=== PATIENT | female | born 2000 | race Caucasian/White ===

== ENCOUNTER 2020-10-12 19:04 | Observation (INO) ==
--- NOTE | 2020-10-12 19:14 | Emergency Department Note ---
Impression & Plan Acute appendicitis, Abdominal pain ED Provider Note NAME: CHARLY RENDON AGE: 19 SEX: F : 2000 ARRIVES VIA: Walk-In INFORMANT: Patient, ED PROVIDER(S): Mitchel Brizuela MD Chief Complaint: Abdominal pain HPI: Patient does present with concern for abdominal pain that initially began yesterday evaluation and was located in the mid abdomen. The patient states that today it is gotten somewhat progressively worse where she state has had gagging episodes and subsequently 2 episodes of vomiting prior to arrival that were nonbloody nonbilious. The patient had tried taking Pepto-Bismol but without relief in her symptoms. The patient denies any recent surgeries or procedures. The patient denies upper respiratory type symptoms including cough, fevers, chills, loss of taste or smell. The patient has no known Covid contacts and no recent travel. The patient denies any vaginal bleeding or discharge. P atient states the pain is worse with palpation and movement. Patient states it got even more uncomfortable this evening she was shifting around in her bed and now describes in the right lower quadrant. ROS: See HPI for pertinent positives and negatives. A total of 10 systems were reviewed and otherwise negative. Past medical history: See below Surgical history: See below Social history: See below Physical Exam: GENERAL: Uncomfortable in appearance, wearing a mask. EYE EXAM: Normal conjunctiva. PERRL, no anisocoria and EOM's grossly intact w/o pain. NECK: Supple, no nuchal rigidity, no adenopathy, non-tender. No signs of meningismus. LUNGS: Clear to auscultation. Normal chest wall mechanics. HEART: NSR, no MRG. ABDOMEN: Abdomen soft, lower abdominal pain worse in the right lower quadrant, positive obturators and psoas signs, normo-active bowel sounds, no masses, no rebound or guarding. BACK: No CVA TTP. SKIN: No rashes and no bruising. UPPER EXTREMITIES: Upper extremities are grossly normal. LOWER EXTREMITIES: Grossly normal, no edema. NEURO EXAM: A&O x3, cranial nerves II-XII grossly intact, normal speech, moves all 4 extremities on command w/o issue. Differential diagnoses: Appendicitis, ovarian cyst, ovarian torsion, ectopic , TOA, PID, infections, diverticulitis, UTI, obstruction, mesenteric ischemia, aortic pathology, inflammatory bowel disease, renal colic, PUD, pancreatitis, biliary pathology, hernia, volvulus, constipation, as well as other pathologies. Course: Patient was seen and evaluated the bedside. Full history physical exam was performed. EKG: Indication: Abdominal pain Normal sinus rhythm, rate of 84, normal intervals, normal axis, no obvious ST changes or T WI. Imaging Studies: CT abdomen pelvis showed acute appendicitis without perforation or abscess. Cardiac monitoring: An order was placed for continuous cardiac monitoring. The monitor shows a rate of 84 with sinus rhythm. MDM: Patient did present with concern for abdominal pain. Blood work is obtained along with an EKG and CT of the abdomen pelvis. The patient was treated symptomatically with IV fluids antiemetics and pain medication. Patient initially was hypotensive and tachycardic. The patient's blood pressure and heart rate did improve sitting upright in bed with IV fluids. Believe this is more secondary to dehydration. Patient white count 11.5. The patient does have a left shift. Mild hyponatremia. Patient's urinalysis does show the possibility of infection but there are numerous epithelial cells. Numerous ketones likely consistent with t he patient's dehydration. Patient CT did show concern for acute appendicitis but without perforation or abscess. I did inform the patient and with her permission I spoke with both of her parents. The patient was feeling improved. Patient declined any additional pain or nausea medication. I did speak with the on-call general surgeon Dr. Jean-Baptiste. Cefoxitin was ordered and the patient did have a Covid test completed. Patient was admitted to general surgery by Dr. Jean-Baptiste. Past Med/Surg History Medical History No pertinent past medical history Surgical History No pertinent past surgical history Social History Smoking Status: Never smoker Hx Alcohol Use: No Hx Substance Use: No marital status: Single current occupational status: student Feels Safe at Home: Yes Allergies Allergies Allergy/AdvReac Type Severity Reaction Status Date / Time No Known Allergies Allergy Verified 10/12/20 20:13 Home Meds Home Medications Medication Instructions Recorded Confirmed bismuth subsalicylate 2 tab PO QID PRN 10/12/20 10/12/20 [Pepto-Bismol] Results & Data (ED) Vital Signs Vital Signs - 24 hr 10/12/20 19:06 10/12/20 19:41 Temperature 36.9 C Temperature Source Temporal Artery Scan Pulse Rate 112 H Respiratory Rate 18 Respiratory Effort / Characteristics Non-Labored Respiratory Depth Normal Blood Pressure 93/45 L Blood Pressure Mean 61 Pulse Oximetry 97 99 Oxygen Delivery Method Room Air Room Air Sepsis Recent Fever Within 48 Hours No Sepsis New/Unexplained Change in Mental Status No Sepsis Action Taken by Nursing No Action Required Home Medications Current Medication List: was personally reviewed by me Laboratory Data Attestation: I reviewed the patient's lab results. Result diagrams: 10/12/20 19:42 10/12/20 19:42 Lab Results 10/12/20 10/12/20 10/12/20 Range/Units 19:42 19:42 19:42 WBC 11.59 H (4.8-10.8) K/uL RBC 4.60 (4.2-5.4) M/uL Hgb 14.1 (12.0-16.0) g/dL POC Hgb (12.0-16.0) g/dl Hct 42.0 (37-47) % POC Hct (37-47) % MCV 91.3 (80-100) fL MCH 30.7 (25-34) pg MCHC 33.6 (32-36) g/dL RDW Std Deviation 42.5 (36.4-46.3) fL RDW Coeff of Anthony 12.7 (11.5-14.5) % Plt Count 214 (130-400) K/uL MPV 10.9 H (7.4-10.4) fL Immature Gran % (Auto) 0.2 % Neut % (Auto) 86.2 % Lymph % (Auto) 7.3 % [place] % (Auto) 6.2 % Eos % (Auto) 0.0 % Baso % (Auto) 0.1 % Neut # (Auto) 9.99 H (1.4-6.5) K/uL Lymph # (Auto) 0.85 L (1.2-3.4) K/uL [place] # (Auto) 0.72 H (0.11-0.59) K/uL Eos # (Auto) 0.00 (0-0.5) K/uL Baso # (Auto) 0.01 (0-0.2) K/uL Immature Gran # (Auto) 0.02 (0.00-0.02) K/uL PT 11.0 (9.0-12.0) Seconds INR 1.1 (0.9-1.1) POC Sodium (135-144) mmol/L Sodium 132 L (136-145) mmol/L POC Potassium (3.3-5.0) mmol/L Potassium 3.6 (3.5-5.1) mmol/L POC Chloride (101-112) mmol/L Chloride 101 (98-107) mmol/L Carbon Dioxide 23 (21-32) mmol/L POC Total CO2 (24-31) mmol/L Anion Gap 8.0 (3-11) POC Anion Gap (16-25) mmol/L POC BUN (7-18) mg/dl BUN 12 (7-18) mg/dl Creatinine 1.07 (0.6-1.2) mg/dl POC Creatinine mg/dl Est Cr Clr Drug Dosing 79.7 ml/min Est GFR ( Amer) 87.2 Est GFR (Non-Af Amer) 75.2 BUN/Creatinine Ratio 11.1 (10-20) Glucose 121 H (70-99) mg/dl POC Glucose (other) (70-99) mg/dl Calcium 9.5 (8.5-10.1) mg/dl POC Ioniz [place] mmol/l Total Bilirubin 0.9 (0.2-1) mg/dl AST 8 L (15-37) U/L ALT 17 (12-78) U/L Alkaline Phosphatase 84 (45-117) U/L Total Protein 8.8 H (6.4-8.2) gm/dl Albumin 4.3 (3.4-5.0) gm/dl Globulin 4.5 H (2.5-4.0) gm/dl Albumin/Globulin Ratio 1.0 (0.9-2) TSH 1.660 (0.300-4.500) uIu/ml Urine Color Urine Appearance (Clear) Urine pH (4.5-7.5) Ur Specific [place] (1.000-1.030) Urine Protein (Negative) Urine Glucose (UA) (Negative) Urine Ketones (Negative) Urine Blood (Negative) Urine Nitrite (Negative) Urine Bilirubin (Negative) Urine Urobilinogen (Negative) Ur Leukocyte Esterase (Negative) Urine WBC (Auto) (0-5) /hpf Urine RBC (Auto) (0-4) /hpf U Hyaline Cast (Auto) (0-5) /lpf U Epithel Cells (Auto) (0-5) /lpf Urine Bacteria (Auto) (Negative) 10/12/20 10/12/20 Range/Units 19:42 19:48 WBC (4.8-10.8) K/uL RBC (4.2-5.4) M/uL Hgb (12.0-16.0) g/dL POC Hgb 16.0 (12.0-16.0) g/dl Hct (37-47) % POC Hct 47 (37-47) % MCV (80-100) fL MCH (25-34) pg MCHC (32-36) g/dL RDW Std Deviation (36.4-46.3) fL RDW Coeff of Anthony (11.5-14.5) % Plt Count (130-400) K/uL MPV (7.4-10.4) fL Immature Gran % (Auto) % Neut % (Auto) % Lymph % (Auto) % [place] % (Auto) % Eos % (Auto) % Baso % (Auto) % Neut # (Auto) (1.4-6.5) K/uL Lymph # (Auto) (1.2-3.4) K/uL [place] # (Auto) (0.11-0.59) K/uL Eos # (Auto) (0-0.5) K/uL Baso # (Auto) (0-0.2) K/uL Immature Gran # (Auto) (0.00-0.02) K/uL PT (9.0-12.0) Seconds INR (0.9-1.1) POC Sodium 134 L (135-144) mmol/L Sodium (136-145) mmol/L POC Potassium 3.7 (3.3-5.0) mmol/L Potassium (3.5-5.1) mmol/L POC Chloride 100 L (101-112) mmol/L Chloride (98-107) mmol/L Carbon Dioxide (21-32) mmol/L POC Total CO2 25 (24-31) mmol/L Anion Gap (3-11) POC Anion Gap 14.0 L (16-25) mmol/L POC BUN 12 (7-18) mg/dl BUN (7-18) mg/dl Creatinine (0.6-1.2) mg/dl POC Creatinine 0.9 mg/dl Est Cr Clr Drug Dosing ml/min Est GFR ( Amer) Est GFR (Non-Af Amer) BUN/Creatinine Ratio (10-20) Glucose (70-99) mg/dl POC Glucose (other) 125 H (70-99) mg/dl Calcium (8.5-10.1) mg/dl POC Ioniz [place] 1.10 mmol/l Total Bilirubin (0.2-1) mg/dl AST (15-37) U/L ALT (12-78) U/L Alkaline Phosphatase (45-117) U/L Total Protein (6.4-8.2) gm/dl Albumin (3.4-5.0) gm/dl Globulin (2.5-4.0) gm/dl Albumin/Globulin Ratio (0.9-2) TSH (0.300-4.500) uIu/ml Urine Color Dark Yellow Urine Appearance Clear (Clear) Urine pH 5.0 (4.5-7.5) Ur Specific [place] 1.029 (1.000-1.030) Urine Protein Trace H (Negative) Urine Glucose (UA) Negative (Negative) Urine Ketones 4+ H (Negative) Urine Blood Trace H (Negative) Urine Nitrite Negative (Negative) Urine Bilirubin 1+ H (Negative) Urine Urobilinogen Negative (Negative) Ur Leukocyte Esterase Negative (Negative) Urine WBC (Auto) 5-10 H (0-5) /hpf Urine RBC (Auto) 0-4 (0-4) /hpf U Hyaline Cast (Auto) 5-10 H (0-5) /lpf U Epithel Cells (Auto) >30 H (0-5) /lpf Urine Bacteria (Auto) 1+ H (Negative) Administered Medications Sodium Chloride (Nss 1000ml) 2,000 mls @ 999 mls/hr IV .Q2H1M COREY Stop: 10/12/20 21:30 Last Admin: 10/12/20 19:58 Dose: 999 mls/hr Documented by: [id number] Discontinued Medications Ioversol (Ioversol 100ml) 94 ml IV ONCE ONE Stop: 10/12/20 20:09 Last Admin: 10/12/20 20:09 Dose: 94 ml Documented by: [id number] Morphine Sulfate (Morphine Sulfate 4 Mg/Ml 1 Ml Carp\Vial) 4 mg IV NOW STA Stop: 10/12/20 19:22 Last Admin: 10/12/20 19:58 Dose: 4 mg Documented by: [id number] Ondansetron HCl (Ondansetron Inj 2 Mg/Ml 2 Ml Vial) 4 mg IV NOW STA Stop: 10/12/20 19:22 Last Admin: 10/12/20 19:58 Dose: 4 mg Documented by: [id number] Discharge Plan Visit Data Chief Complaint: Abdominal Pain Stated Complaint: ABD PAIN, VOMITING ED Provider: Mitchel Brizuela Discharge Problem: Acute appendicitis, Abdominal pain Forms Stand Alone Forms: [employer] [facility] [place] [employer] Content Prescriptions Prescriptions: No Action bismuth subsalicylate [Pepto-Bismol] 262 mg Tablet,Chewable 2 tab PO QID PRN (Reason: Indigestion) RF: 0 Discharge Problem: Acute appendicitis Qualifiers: Acute appendicitis type: with localized peritonitis Appendicitis gangrene presence: without gangrene Appendicitis perforation presence: without perforation Appendicitis abscess presence: without abscess Qualified Code(s): K35.30 - Acute appendicitis with localized peritonitis, without perforation or gangrene Abdominal pain Qualifiers: Abdominal location: right lower quadrant Qualified Code(s): R10.31 - Right lower quadrant pain
[2020-10-12] MEDS ORDERED: MoRPHine SULFATE 4 MG/ML 1 ML CARP\\VIAL IV STA (19:21)
[2020-10-12] MEDS ORDERED: ONDANSETRON INJ 2 MG/ML 2 ML VIAL IV STA (19:21)
[2020-10-12] MEDS ORDERED: SODIUM CHLORIDE 0.9% 1000ML 2,000 ML IV SCH (19:30)
[2020-10-12 19:54] LABS: Basophils # (auto) 0.01 K/uL (0-0.2); Basophils % (auto) 0.1 %; Hemoglobin 14.1 g/dL (12.0-16.0); Immature Granulocytes # (auto) 0.02 K/uL (0.00-0.02); Immature Granulocytes % (auto) 0.2 %; Lymphocytes # (auto) 0.85 K/uL (1.2-3.4); Lymphocytes % (auto) 7.3 %; Mean Corpuscular Hemoglobin 30.7 pg (25-34); Mean Corpuscular Hgb Conc 33.6 g/dL (32-36); Mean Corpuscular Volume 91.3 fL (80-100); Mean Platelet Volume 10.9 fL (7.4-10.4); Monocytes # (auto) 0.72 K/uL (0.11-0.59); Monocytes % (auto) 6.2 %; Neutrophils # (auto) 9.99 K/uL (1.4-6.5); Neutrophils % (auto) 86.2 %; Platelet Count 214 K/uL (130-400); RDW Coefficient of Variation 12.7 % (11.5-14.5); RDW Standard Deviation 42.5 fL (36.4-46.3); White Blood Count 11.59 K/uL (4.8-10.8)
[2020-10-12 20:01] LABS: iSTAT Creatinine 0.9 mg/dl; iSTAT Ionized Calcium 1.1 mmol/l; iSTAT Potassium 3.7 mmol/L (3.3-5.0)
[2020-10-12 20:02] LABS: Appearance Urine Clear (Clear); Bacteria Urine Automated 1+ (Negative); Blood Urine Trace (Negative); Color Urine Dark Yellow; Epithelial Cell Urine Auto >30 /lpf (0-5); Glucose Urine UA Negative (Negative); INR 1.1 (0.9-1.1); Ketones Urine 4+ (Negative); Leukocyte Esterase Urine Negative (Negative); Nitrite Urine Negative (Negative); Protein Urine Trace (Negative); RBC Urine Automated 0-4 /hpf (0-4); Specific Gravity Urine 1.029 (1.000-1.030); Urobilinogen Urine Negative (Negative)
[2020-10-12 20:08] LABS: Bilirubin Urine 1+ (Negative)
[2020-10-12] MEDS ORDERED: OPTIRAY 320 100ml IV ONE (20:08)
[2020-10-12 20:10] LABS: Albumin Level 4.3 gm/dl (3.4-5.0); BUN Creatinine Ratio 11.1 (10-20); Calcium 9.5 mg/dl (8.5-10.1); Creatinine Clr Calc Pharmacy 79.7 ml/min; Est GFR (African American) 87.2; Est GFR (Non-African American) 75.2; Potassium 3.6 mmol/L (3.5-5.1)
[2020-10-12 20:21] LABS: Bilirubin,Total 0.9 mg/dl (0.2-1); Globulin 4.5 gm/dl (2.5-4.0); Thyroid Stimulating Hormone 1.66 uIu/ml (0.300-4.500); Total Protein 8.8 gm/dl (6.4-8.2)
[2020-10-12] MEDS ORDERED: cefOXitin 2,000 MG/60 ML BAG IV STA (20:39)
[2020-10-12 22:02] LABS: Pregnancy Test, Urine Negative (Negative)
[2020-10-12 22:03] LABS: Influenza A virus by PCR Negative (Neg); Influenza B virus by PCR Negative (Neg); RSV by PCR Negative (Neg); SARS CoV2 RNA(COVID-19) InHosp NEGATIVE (Negative)
--- NOTE | 2020-10-12 22:12 | History & Physical Report ---
Date of Service October 12, 2020 Assessment & Plan (1) Acute appendicitis: This patient's history, physical exam, laboratory evaluation and CT scan are all consistent with acute appendicitis. I reviewed the images as well as the report. I discussed the options with the patient and with her mom and dad who were contacted by telephone. I discussed antibiotics versus surgery. I explained the laparoscopic cholecystectomy and the possible need to convert to an open procedure. I explained the possible complications. I answered all their questions. They have chosen surgery. She has signed a consent form. History of Present Illness Chief Complaint: Right lower quadrant abdominal pain Primary Care Provider: NO PCP This is a 19-year-old female who presented to the emergency room with a complaint of right lower quadrant abdominal pain. She awoke with it yesterday morning. At that time it was a dull ache-like sensation diffusely throughout her abdomen. As the day progressed the pain seemed to increase in intensity but she was able to go to sleep last night. When she awoke this morning the pain was much more severe and sharp. It had migrated to the right lower quadrant where it is located now. It does not radiate. It is exacerbated by motion. She has never had pain like this before. She has no fever or chills but she did develop vomiting this morning and vomited again on the way to the hospital. There was no hematemesis. She has no history of peptic ulcer disease. She has no melena or hematochezia. She denies dysuria and hematuria. Allergies Allergy/AdvReac Type Severity Reaction Status Date / Time No Known Allergies Allergy Verified 10/12/20 20:13 Home Medications Medication Instructions Recorded Confirmed Type bismuth subsalicylate 2 tab PO QID PRN 10/12/20 10/12/20 History [Pepto-Bismol] Past Med/Surg History Medical History (Updated 10/12/20 @ 20:46 by Mitchel Brizuela MD) No pertinent past medical history Surgical History (Updated 10/12/20 @ 22:08 by Orlando Jean-Baptiste MD) No pertinent past surgical history [place] teeth extracted Social History Smoking Status: Never smoker Hx Alcohol Use: No Hx Substance Use: No marital status: Single current occupational status: student Feels Safe at Home: Yes Review of Systems Review of Systems: All systems reviewed & are unremarkable except as noted in HPI & below Physical Exam Constitutional: no acute distress Neck: trachea midline Respiratory: normal respiratory effort, lungs clear to auscultation Cardiovascular: Rate/Rhythm: regular rate and regular rhythm Gastrointestinal (Abdomen): Inspection/Auscultation: abdomen normal to inspection and normal bowel sounds; abdomen not distended Percussion/Palpation: + abdomen tender (Right lower quadrant with referred tenderness from the left lower quadrant) and abdomen soft Skin: no rashes, warm and dry Lymphatic: + lymphadenopathy; no cervical lymphadenopathy Results & Data Results & Data ([facility]) Vital Signs (Past 12 Hours) Vital Signs Temp Pulse Resp BP Pulse Ox 10/12/20 21:31 98 H 25 H 99 10/12/20 21:30 102 H 29 H 111/70 99 10/12/20 21:01 109 H 29 H 99 10/12/20 21:00 95 H 22 110/68 100 10/12/20 20:45 102 H 27 H 99 10/12/20 20:44 106 H 25 H 117/74 99 10/12/20 20:31 105 H 25 H 97 10/12/20 20:30 104 H 30 H 121/75 98 10/12/20 20:01 88 20 99 10/12/20 20:00 92 H 17 111/63 100 10/12/20 19:56 99 H 30 H 116/72 100 10/12/20 19:43 102 H 32 H 10/12/20 19:41 99 10/12/20 19:06 36.9 C 112 H 18 93/45 L 97 Laboratory Results 10/12/20 10/12/20 10/12/20 Range/Units Unknown Unknown 19:48 WBC (4.8-10.8) K/uL RBC (4.2-5.4) M/uL Hgb (12.0-16.0) g/dL POC Hgb 16.0 (12.0-16.0) g/dl Hct (37-47) % POC Hct 47 (37-47) % MCV (80-100) fL MCH (25-34) pg MCHC (32-36) g/dL RDW Std Deviation (36.4-46.3) fL RDW Coeff of [place] (11.5-14.5) % Plt Count (130-400) K/uL MPV (7.4-10.4) fL Immature Gran % (Auto) % Neut % (Auto) % Lymph % (Auto) % [place] % (Auto) % Eos % (Auto) % Baso % (Auto) % Neut # (Auto) (1.4-6.5) K/uL Lymph # (Auto) (1.2-3.4) K/uL [place] # (Auto) (0.11-0.59) K/uL Eos # (Auto) (0-0.5) K/uL Baso # (Auto) (0-0.2) K/uL Immature Gran # (Auto) (0.00-0.02) K/uL PT (9.0-12.0) Seconds INR (0.9-1.1) POC Sodium 134 L (135-144) mmol/L Sodium (136-145) mmol/L POC Potassium 3.7 (3.3-5.0) mmol/L Potassium (3.5-5.1) mmol/L POC Chloride 100 L (101-112) mmol/L Chloride (98-107) mmol/L Carbon Dioxide (21-32) mmol/L POC Total CO2 25 (24-31) mmol/L Anion Gap (3-11) POC Anion Gap 14.0 L (16-25) mmol/L POC BUN 12 (7-18) mg/dl BUN (7-18) mg/dl Creatinine (0.6-1.2) mg/dl POC Creatinine 0.9 mg/dl Est Cr Clr Drug Dosing ml/min Est GFR ( Amer) Est GFR (Non-Af Amer) BUN/Creatinine Ratio (10-20) Glucose (70-99) mg/dl POC Glucose (other) 125 H (70-99) mg/dl Calcium (8.5-10.1) mg/dl POC Ioniz [place] 1.10 mmol/l Total Bilirubin (0.2-1) mg/dl AST (15-37) U/L ALT (12-78) U/L Alkaline Phosphatase (45-117) U/L Total Protein (6.4-8.2) gm/dl Albumin (3.4-5.0) gm/dl Globulin (2.5-4.0) gm/dl Albumin/Globulin Ratio (0.9-2) TSH (0.300-4.500) uIu/ml Urine Color Urine Appearance (Clear) Urine pH (4.5-7.5) Ur Specific [place] (1.000-1.030) Urine Protein (Negative) Urine Glucose (UA) (Negative) Urine Ketones (Negative) Urine Blood (Negative) Urine Nitrite (Negative) Urine Bilirubin (Negative) Urine Urobilinogen (Negative) Ur Leukocyte Esterase (Negative) Urine WBC (Auto) (0-5) /hpf Urine RBC (Auto) (0-4) /hpf U Hyaline Cast (Auto) (0-5) /lpf U Epithel Cells (Auto) (0-5) /lpf Urine Bacteria (Auto) (Negative) Urine Test (Negative) COVID-19 Eval Order CovFluRsv at [facility] SARS-CoV-2 (PCR) NEGATIVE (Negative) Influenza Type A (PCR) Negative (Neg) Influenza Type B (PCR) Negative (Neg) RSV (RT-PCR) Negative (Neg) 10/12/20 10/12/20 10/12/20 Range/Units 19:42 19:42 19:42 WBC (4.8-10.8) K/uL RBC (4.2-5.4) M/uL Hgb (12.0-16.0) g/dL POC Hgb (12.0-16.0) g/dl Hct (37-47) % POC Hct (37-47) % MCV (80-100) fL MCH (25-34) pg MCHC (32-36) g/dL RDW Std Deviation (36.4-46.3) fL RDW Coeff of [place] (11.5-14.5) % Plt Count (130-400) K/uL MPV (7.4-10.4) fL Immature Gran % (Auto) % Neut % (Auto) % Lymph % (Auto) % [place] % (Auto) % Eos % (Auto) % Baso % (Auto) % Neut # (Auto) (1.4-6.5) K/uL Lymph # (Auto) (1.2-3.4) K/uL [place] # (Auto) (0.11-0.59) K/uL Eos # (Auto) (0-0.5) K/uL Baso # (Auto) (0-0.2) K/uL Immature Gran # (Auto) (0.00-0.02) K/uL PT 11.0 (9.0-12.0) Seconds INR 1.1 (0.9-1.1) POC Sodium (135-144) mmol/L Sodium 132 L (136-145) mmol/L POC Potassium (3.3-5.0) mmol/L Potassium 3.6 (3.5-5.1) mmol/L POC Chloride (101-112) mmol/L Chloride 101 (98-107) mmol/L Carbon Dioxide 23 (21-32) mmol/L POC Total CO2 (24-31) mmol/L Anion Gap 8.0 (3-11) POC Anion Gap (16-25) mmol/L POC BUN (7-18) mg/dl BUN 12 (7-18) mg/dl Creatinine 1.07 (0.6-1.2) mg/dl POC Creatinine mg/dl Est Cr Clr Drug Dosing 79.7 ml/min Est GFR ( Amer) 87.2 Est GFR (Non-Af Amer) 75.2 BUN/Creatinine Ratio 11.1 (10-20) Glucose 121 H (70-99) mg/dl POC Glucose (other) (70-99) mg/dl Calcium 9.5 (8.5-10.1) mg/dl POC Ioniz [place] mmol/l Total Bilirubin 0.9 (0.2-1) mg/dl AST 8 L (15-37) U/L ALT 17 (12-78) U/L Alkaline Phosphatase 84 (45-117) U/L Total Protein 8.8 H (6.4-8.2) gm/dl Albumin 4.3 (3.4-5.0) gm/dl Globulin 4.5 H (2.5-4.0) gm/dl Albumin/Globulin Ratio 1.0 (0.9-2) TSH 1.660 (0.300-4.500) uIu/ml Urine Color Dark Yellow Urine Appearance Clear (Clear) Urine pH 5.0 (4.5-7.5) Ur Specific [place] 1.029 (1.000-1.030) Urine Protein Trace H (Negative) Urine Glucose (UA) Negative (Negative) Urine Ketones 4+ H (Negative) Urine Blood Trace H (Negative) Urine Nitrite Negative (Negative) Urine Bilirubin 1+ H (Negative) Urine Urobilinogen Negative (Negative) Ur Leukocyte Esterase Negative (Negative) Urine WBC (Auto) 5-10 H (0-5) /hpf Urine RBC (Auto) 0-4 (0-4) /hpf U Hyaline Cast (Auto) 5-10 H (0-5) /lpf U Epithel Cells (Auto) >30 H (0-5) /lpf Urine Bacteria (Auto) 1+ H (Negative) Urine Test (Negative) COVID-19 Eval Order SARS-CoV-2 (PCR) (Negative) Influenza Type A (PCR) (Neg) Influenza Type B (PCR) (Neg) RSV (RT-PCR) (Neg) 10/12/20 10/12/20 Range/Units 19:42 19:33 WBC 11.59 H (4.8-10.8) K/uL RBC 4.60 (4.2-5.4) M/uL Hgb 14.1 (12.0-16.0) g/dL POC Hgb (12.0-16.0) g/dl Hct 42.0 (37-47) % POC Hct (37-47) % MCV 91.3 (80-100) fL MCH 30.7 (25-34) pg MCHC 33.6 (32-36) g/dL RDW Std Deviation 42.5 (36.4-46.3) fL RDW Coeff of Anthony 12.7 (11.5-14.5) % Plt Count 214 (130-400) K/uL MPV 10.9 H (7.4-10.4) fL Immature Gran % (Auto) 0.2 % Neut % (Auto) 86.2 % Lymph % (Auto) 7.3 % [place] % (Auto) 6.2 % Eos % (Auto) 0.0 % Baso % (Auto) 0.1 % Neut # (Auto) 9.99 H (1.4-6.5) K/uL Lymph # (Auto) 0.85 L (1.2-3.4) K/uL [place] # (Auto) 0.72 H (0.11-0.59) K/uL Eos # (Auto) 0.00 (0-0.5) K/uL Baso # (Auto) 0.01 (0-0.2) K/uL Immature Gran # (Auto) 0.02 (0.00-0.02) K/uL PT (9.0-12.0) Seconds INR (0.9-1.1) POC Sodium (135-144) mmol/L Sodium (136-145) mmol/L POC Potassium (3.3-5.0) mmol/L Potassium (3.5-5.1) mmol/L POC Chloride (101-112) mmol/L Chloride (98-107) mmol/L Carbon Dioxide (21-32) mmol/L POC Total CO2 (24-31) mmol/L Anion Gap (3-11) POC Anion Gap (16-25) mmol/L POC BUN (7-18) mg/dl BUN (7-18) mg/dl Creatinine (0.6-1.2) mg/dl POC Creatinine mg/dl Est Cr Clr Drug Dosing ml/min Est GFR ( Amer) Est GFR (Non-Af Amer) BUN/Creatinine Ratio (10-20) Glucose (70-99) mg/dl POC Glucose (other) (70-99) mg/dl Calcium (8.5-10.1) mg/dl POC Ioniz [place] mmol/l Total Bilirubin (0.2-1) mg/dl AST (15-37) U/L ALT (12-78) U/L Alkaline Phosphatase (45-117) U/L Total Protein (6.4-8.2) gm/dl Albumin (3.4-5.0) gm/dl Globulin (2.5-4.0) gm/dl Albumin/Globulin Ratio (0.9-2) TSH (0.300-4.500) uIu/ml Urine Color Urine Appearance (Clear) Urine pH (4.5-7.5) Ur Specific [place] (1.000-1.030) Urine Protein (Negative) Urine Glucose (UA) (Negative) Urine Ketones (Negative) Urine Blood (Negative) Urine Nitrite (Negative) Urine Bilirubin (Negative) Urine Urobilinogen (Negative) Ur Leukocyte Esterase (Negative) Urine WBC (Auto) (0-5) /hpf Urine RBC (Auto) (0-4) /hpf U Hyaline Cast (Auto) (0-5) /lpf U Epithel Cells (Auto) (0-5) /lpf Urine Bacteria (Auto) (Negative) Urine Test Negative (Negative) COVID-19 Eval Order SARS-CoV-2 (PCR) (Negative) Influenza Type A (PCR) (Neg) Influenza Type B (PCR) (Neg) RSV (RT-PCR) (Neg) Diagnostic Findings CT scan of the abdomen and pelvis shows acute appendicitis with the appendix distended up to 1.2 cm with mucosal hyperemia and trace adjacent fat stranding. There is no perforation or abscess. There is mucosal thickening within the pelvic small bowel loops favored reactive. Small free fluid within the pelvis. (1) Acute appendicitis Acute appendicitis type: with localized peritonitis Appendicitis abscess presence: without abscess Appendicitis gangrene presence: without gangrene Appendicitis perforation presence: without perforation Qualified Code(s): K35.30 - Acute appendicitis with localized peritonitis, without perforation or gangrene
[2020-10-12] MEDS ORDERED: BUPIVACAINE 0.5 % 5 MG/1 ML MPF 30ML VIAL ONE (22:21)
[2020-10-12] MEDS ORDERED: HEPARIN (PORCINE) 1000 UNIT/ML 10 ML (CATH LAB USE ONLY) ONE (22:21)
[2020-10-12] MEDS ORDERED: MIDAZOLAM HCL 1 MG/ML 2ML VIAL ONE (22:30)
[2020-10-12] MEDS ORDERED: ROCURONIUM BROMIDE 10 MG/ML 5 ML VIAL IV ONE (22:30)
[2020-10-12] MEDS ORDERED: SUCCINYLCHOLINE 100MG/5ML SYR IV ONE (22:30)
[2020-10-12] MEDS ORDERED: fentaNYL citrate 100 MCG/2 ML VIAL ONE ×2 (22:30→23:12)
[2020-10-12] MEDS ORDERED: PROPOFOL IV EMULSION 10 MG/ML 20 ML VIAL IV ONE (22:30)
[2020-10-12] MEDS ORDERED: ePHEDrine sulfate 50 MG/ML AMP IV PRN (22:43)
[2020-10-12] MEDS ORDERED: ATROPINE SULFATE 0.1 MG/ML 10ML SYR IV PRN (22:43)
[2020-10-12] MEDS ORDERED: PROMETHAZINE HCL 12.5 MG in SODIUM CHLORIDE 0.9% 50 ML IV PRN (22:43)
[2020-10-12] MEDS ORDERED: ONDANSETRON INJ 2 MG/ML 2 ML VIAL IV PRN (22:43)
[2020-10-12] MEDS ORDERED: HYDROmorphone INJ 2 MG/ML SYR/VIAL IV PRN (22:43)
[2020-10-12] MEDS ORDERED: fentaNYL citrate 100 MCG/2 ML VIAL IV PRN (22:43)
--- NOTE | 2020-10-12 22:43 | Anesthesiology Consultation ---
Date of Service October 12, 2020 Assessment & Plan ASA ASA2 Proposed Anesthesia Anesthesia Type: General Risk / Benefits Reviewed With: PT / POA / Parent / Guardian, Accepts Plan and Informed Consent Obtained History Surgery Operation Date: 10/12/20 23:00 Proposed Procedures p Laparoscopic Appendectomy - Orlando Jean-Baptiste MD Height/Weight Height: 5 ft 9 in Weight: 59.7 kg Allergies Allergy/AdvReac Type Severity Reaction Status Date / Time No Known Allergies Allergy Verified 10/12/20 20:13 Medications Home Medications Medication Instructions Recorded Confirmed Last Taken bismuth subsalicylate 2 tab PO QID PRN 10/12/20 10/12/20 10/12/20 15:00 [Pepto-Bismol] Past Medical History Medical History No pertinent past medical history Exercise / Class Metabolic Activity II 4-5 Yardwork/Stairs/Walk up hill Past Surgical History Surgical History No pertinent past surgical history [place] teeth extracted Past Anesthesia History No Hx of Anesthesia Complications and No Family Hx of Anesthesia Complications History of PONV No Hx of PONV and No Hx of Motion Sickness Social History Smoking Status: Never smoker Hx Alcohol Use: No Hx Substance Use: No Review of Systems denies fever/cough/ colds/ chest pain/ SOB/ LIBAN denies LIBAN Physical Exam Vital Signs Last Vital Signs Temp 36.9 C 10/12/20 19:06 Pulse 111 H 10/12/20 22:01 Resp 24 10/12/20 22:01 BP 109/66 10/12/20 22:00 Pulse Ox 98 10/12/20 22:01 ENMT Mouth: no TMJ abnormality and no dentition abnormality Thyromental Distance: > or= 3.5 Finger Breadths Mallampati Class: II Neck neck extension not limited Respiratory normal respiratory effort; no respiratory distress Auscultation: lungs clear to auscultation bilaterally Cardiovascular Rate/Rhythm: regular rate and regular rhythm Neurologic moves all extremities Psychiatric Orientation: alert and oriented x 3 Testing Laboratory Results 10/12/20 19:42 10/12/20 19:42 PT 11.0 Seconds (9.0-12.0) 10/12/20 19:42 INR 1.1 (0.9-1.1) 10/12/20 19:42 Urine Color Dark Yellow 10/12/20 19:42 Urine Appearance Clear (Clear) 10/12/20 19:42 Urine pH 5.0 (4.5-7.5) 10/12/20 19:42 Ur Specific [place] 1.029 (1.000-1.030) 10/12/20 19:42 Urine Protein Trace (Negative) H 10/12/20 19:42 Urine Glucose (UA) Negative (Negative) 10/12/20 19:42 Urine Ketones 4+ (Negative) H 10/12/20 19:42 Urine Nitrite Negative (Negative) 10/12/20 19:42 Ur Leukocyte Esterase Negative (Negative) 10/12/20 19:42 Urine WBC (Auto) 5-10 /hpf (0-5) H 10/12/20 19:42 Urine RBC (Auto) 0-4 /hpf (0-4) 10/12/20 19:42 U Hyaline Cast (Auto) 5-10 /lpf (0-5) H 10/12/20 19:42 U Epithel Cells (Auto) >30 /lpf (0-5) H 10/12/20 19:42 Urine Bacteria (Auto) 1+ (Negative) H 10/12/20 19:42 Urine Test Negative (Negative) 10/12/20 19:33 10/12/20 19:48 POC Glucose (other) 125 H 10/12/20 19:33 Urine Test Negative
[2020-10-12] MEDS ORDERED: ONDANSETRON INJ 2 MG/ML 2 ML VIAL ONE (23:07)
[2020-10-12] MEDS ORDERED: DEXAMETHASONE SOD INJ 4 MG/ML VIAL ONE (23:07)
[2020-10-12] MEDS ORDERED: KETOROLAC 30 MG/ML VIAL ONE (23:07)
[2020-10-12] MEDS ORDERED: NEOSTIGMINE METHYLSULFATE 5 MG/5 ML SYR ONE (23:16)
[2020-10-12] MEDS ORDERED: GLYCOPYRROLATE 0.2 MG/ML VIAL ONE (23:16)
--- NOTE | 2020-10-13 00:40 | Post Operative Brief Note ---
Immediate Post Op Note v1 Date of Surgery October 13, 2020 Pre & Post Diagnosis Operation Date: 10/12/20 23:00 Pre-Op Diagnosis: Acute appendicitis Post-Op Diagnosis: Acute appendicitis I identified the patient and participated in the time-out.: Yes Procedure Operation Date: 10/12/20 23:00 Actual Procedures p Laparoscopic Appendectomy(Not Applicable) - Orlando Jean-Baptiste MD Surgeon Orlando Jean-Baptiste MD Hand Cutter Apprentice None Estimated Blood Loss 5 Findings Consistent with Post-Op Diagnosis Drains Davey-Richards Drain (10 fr. round)
[2020-10-13] MEDS ORDERED: PIPERACILL/TAZOBAC CONSULT ACTIVE PRN (00:52)
--- NOTE | 2020-10-13 00:59 | Anesthesiology Progress Note ---
Date of Service October 13, 2020 Anesthesia Post Procedure Vital Signs Vital Signs: Temp Pulse Pulse Resp BP BP Pulse Ox 10/13/20 00:50 78 14 114/71 98 10/13/20 00:42 37.7 C H 80 14 112/64 98 10/12/20 22:01 111 H 24 98 10/12/20 22:00 110 H 21 109/66 99 10/12/20 21:31 98 H 25 H 99 10/12/20 21:30 102 H 29 H 111/70 99 10/12/20 21:01 109 H 29 H 99 10/12/20 21:00 95 H 22 110/68 100 10/12/20 20:45 102 H 27 H 99 10/12/20 20:44 106 H 25 H 117/74 99 10/12/20 20:31 105 H 25 H 97 10/12/20 20:30 104 H 30 H 121/75 98 10/12/20 20:01 88 20 99 10/12/20 20:00 92 H 17 111/63 100 10/12/20 19:56 99 H 30 H 116/72 100 10/12/20 19:43 102 H 32 H 10/12/20 19:41 99 10/12/20 19:06 36.9 C 112 H 18 93/45 L 97 Transfer of Care Handoff Completed per policy Notes Mental Status: alert / awake / arousable and participated in evaluation Patient Amnestic to Procedure: Yes Nausea / Vomiting: adequately controlled Pain: adequately controlled Airway Patency, RR, SpO2: stable & adequate BP & HR: stable & adequate Hydration State: stable & adequate Anesthetic Complications: no major complications apparent and Pt Satisfied with anesthetic care
[2020-10-13] MEDS ORDERED: ONDANSETRON INJ 2 MG/ML 2 ML VIAL IV PRN (01:33)
[2020-10-13] MEDS ORDERED: SODIUM CHLORIDE 0.9% 1000ML 1,000 ML IV SCH ×2 (01:33)
[2020-10-13] MEDS ORDERED: MoRPHine SULFATE 2 MG/ML CARP IV PRN (01:36)
[2020-10-13] MEDS ORDERED: PIPERACILLIN/TAZOBACTAM 3.375 GM in DEXTROSE 5% 100 ML IV ONE (02:00)
--- NOTE | 2020-10-13 06:24 | CT Scan Report ---
CT abd pelvis IV con only CLINICAL HISTORY: Right lower quadrant abdominal pain COMPARISON STUDY: None. TECHNIQUE: Patient was scanned in a dynamic helical fashion during intravenous administration of 94 c c of Optiray 320 A dose lowering technique was utilized adhering to the principles of ALARA. CT DOSE: 296.51 mGy.cm FINDINGS: Lower chest: The heart is normal in size and configuration, without pericardial effusion. The lung ba ses and pleural spaces are clear. Liver: The contrast-enhanced liver is normal in size, contour, and attenuation. There is no intrahepa tic biliary ductal dilatation. The hepatic veins and portal veins are patent. Gallbladder: Unremarkable. Spleen: Normal in size and attenuation. Pancreas: Unremarkable. Adrenal glands: Unremarkable. Kidneys: There is symmetric renal cortical enhancement. The kidneys are normal in size without hydron ephrosis. Bowel: There are no transition zones to indicate bowel obstruction. There is a mildly dilated fluid-f illed appendix measuring 11 mm. There is mild infiltration of periappendiceal fat. In the setting of right lower quadrant abdominal pain, the findings are indicative of acute appendicitis. There is no e vidence of acute diverticulitis. There is minor bowel wall thickening involving several pelvic bowel loops possibly reactive Peritoneum: There is a small amount of free pelvic fluid. There is no free intraperitoneal air. Vasculature: The abdominal aorta is normal in course and caliber. Adenopathy: None. Pelvic viscera: The bladder, and pelvic viscera are unremarkable. Skeletal structures: No destructive osseous lesions are seen. IMPRESSION: 1. No evidence of bowel obstruction. No evidence of free air 2. Mildly dilated fluid-filled appendix. There is periappendiceal stranding. In the setting of right lower quadrant abdominal pain the findings are indicative of acute appendicitis. ACT 112: Negative or not required by law. Electronically signed by: Asaf Richter M.D. 10/13/2020 6:23 AM
[2020-10-13] MEDS: PIPERACILLIN/TAZOBACTAM 3.375 GM in DEXTROSE 5% 100 ML IV SCH ×3 (07:44→23:28)
--- NOTE | 2020-10-13 10:14 | Surgery Progress Note ---
Date of Service October 13, 2020 Assessment & Plan (1) Acute appendicitis: Postoperative day 0 status post laparoscopic appendectomy. She is having expected amount of discomfort that is controlled Continue IV antibiotics Awaiting cultures Encouraged ambulation Oral intake as tolerated Admission and Anticipated Discharge Date Admission Date: October 13, 2020 Subjective Postoperative day 0 status post laparoscopic appendectomy with probable small perforation Patient is having mild discomfort this morning Does not feel nausea Has not had bowel movement T-max 37.7 Physical Exam Gastrointestinal (Abdomen): Inspection/Auscultation: + abdomen distended (Mild), + abdominal surgical incision (Clean, dry and intact) and + hypoactive bowel sounds (But normal pitch) Percussion/Palpation: + abdomen tender (Minimal) and abdomen soft Results & Data ([facility]) Vital Signs (Past 12 Hours) Vital Signs Temp Pulse Pulse Resp BP Pulse Ox 10/13/20 06:59 36.5 C 62 16 94/55 L 98 10/13/20 04:51 60 14 91/51 L 97 10/13/20 03:29 76 12 89/44 L 98 10/13/20 02:33 72 14 91/49 L 97 10/13/20 01:52 36.9 C 85 14 101/61 95 10/13/20 01:20 36.9 C 79 14 106/62 95 10/13/20 01:10 37.4 C 91 H 14 110/61 98 10/13/20 01:00 89 14 111/60 98 10/13/20 00:50 78 14 114/71 98 10/13/20 00:42 37.7 C H 80 14 112/64 98 Laboratory Results Gram stain of peritoneal fluid showed many polys but no organisms seen, cultures are pending (1) Acute appendicitis Acute appendicitis type: with localized peritonitis Appendicitis abscess p resence: without abscess Appendicitis gangrene presence: without gangrene Appendicitis perforation presence: without perforation Qualified Code(s): K35.30 - Acute appendicitis with localized peritonitis, without perforation or gangrene
--- NOTE | 2020-10-13 13:33 | Electrocardiogram Report ---
Test Reason : Blood Pressure : / mmHG Vent. Rate : 084 BPM Atrial Rate : 084 BPM P-R Int : 128 ms QRS Dur : 064 ms QT Int : 350 ms P-R-T Axes : 042 073 046 degrees QTc Int : 413 ms Poor data quality, interpretation may be adversely affected Normal sinus rhythm Normal ECG No previous ECGs available Confirmed by Bolivar Greenfield ([id number]) on 10/13/2020 1:32:53 PM Referred By: REFERRED SELF Confirmed By:Bolivar Greenfield
[2020-10-13] MEDS: oxyCODONE/ACETAMINOPHEN 5mg/325mg TAB PO PRN ×2 (14:34→23:28)
--- NOTE | 2020-10-13 14:52 | Operative Report (OR) ---
DATE OF OPERATION: 10/13/2020 PREOPERATIVE DIAGNOSIS: Acute appendicitis. POSTOPERATIVE DIAGNOSIS: Acute appendicitis with pinhole perforation. PROCEDURE: Laparoscopic appendectomy. SURGEON: Orlando Jean-Baptiste MD. FINDINGS: The appendix was inflamed and thickened. At one area of the appendix, there was a green material inspissated against the wall and in dissecting free of the surrounding tissues, there was a small area of leakage of the appendix material. Upon entering the abdomen, the pelvis was inspected. There was turbid fluid present. This was removed with suction and some of it was sent for culture. The base of the appendix in its proximal centimeter and the cecum at the base of the appendix were normal. The visible bowel appeared normal. TECHNIQUE: The patient was given a general anesthetic and the area was prepped and draped in the usual sterile fashion. The site for the infraumbilical incision was chosen and the skin layers were anesthetized with 0.5% Marcaine. Skin incision was made, carried down through the subcutaneous tissue to the fascia which was grasped with 2 Jimbo clamps and incised between. The peritoneum was identified, incised, and the introducers were placed bluntly. The abdomen was then insufflated to a pressure of 15 mmHg with carbon dioxide. The lower midline introducer was placed after anesthetizing the skin at the site with the same local. Skin incision was made, and the introducer was placed under direct vision. The right lower quadrant was inspected. The appendix was identified and the left lower quadrant introducer site was chosen. The skin layers were anesthetized. Skin incision was made, and the introducer was placed under direct vision. The omentum was adherent to the right lower quadrant structures, especially the appendix and this was peeled away using blunt dissection. The tip of the appendix was adherent to the mesentery of the cecum and this was divided bluntly. That allowed me to elevate the appendix. The appendix was attached to the lateral abdominal wall with thickened adhesions of those were divided, which allowed me to then place medial traction on the appendix and on the cecum. Further dissection along the appendiceal wall, there exposed the base of the appendix. The terminal ileum and the fat over the terminal ileum was densely adherent to the wall of the appendix and this had to be dissected millimeter by millimeter and with doing so, the area of the green inspissated material showed a small area of leakage. This was removed using suction medially. Further dissection posteriorly allowed me to identify the mesoappendix and in 2 firings of the Endo-CARLA stapler, I divided the mesoappendix after it away from the wall of the appendix. The peritoneum was quite thickened in that area as well. Once that was divided, I was then able to further elevate the appendix away from the posterior abdominal wall and the terminal ileum such that it was completely freed. Again, using blunt dissection was then confirmed, I was at the base of the appendix, identifying its junction with the cecum. It was normal at that point. The appendix was amputated using the Endo-CARLA stapler. The appendix was placed into an Endobag and brought out through the left lower quadrant introducer site with ease. The right lower quadrant was irrigated and irrigation was removed. The staple lines were inspected. There was no bleeding. The pelvis was irrigated and irrigation was removed. That was repeated until the return was clear. Any irrigation that entered the right upper quadrant was removed as well. Because of the turbid fluid in the pelvis and a small area of perforation, I decided to place a drain, which was brought out through a stab incision in the right lower quadrant and laid along the lateral aspect of the cecum and then into the pelvis. It was secured to the skin with a 3-0 nylon. This was a round Davey-Richards drain. The gas was then allowed to escape and the introducers were removed. The fascia of the umbilical and left lower quadrant introducer sites was closed with interrupted 0 Vicryl and skin of all the incisions was closed with 4-0 Monocryl in either an interrupted or running subcuticular fashion. The skin was further anesthetized with 0.5% Marcaine. The skin was cleansed, dried, benzoin placed, Steri-Strips applied. Estimated blood loss was 5 mL. Sponge, needle and instrument counts were correct prior to closure. The patient tolerated the surgical procedure without complication and was transferred to recovery. I attest to the content of the Intraoperative Record and any orders documented therein. Any exception s are noted below.
[2020-10-14 06:02] LABS: Basophils # (auto) 0.01 K/uL (0-0.2); Basophils % (auto) 0.1 %; Eosinophils # (auto) 0.04 K/uL (0-0.5); Eosinophils % (auto) 0.5 %; Hemoglobin 10.4 g/dL (12.0-16.0); Immature Granulocytes # (auto) 0.01 K/uL (0.00-0.02); Immature Granulocytes % (auto) 0.1 %; Lymphocytes # (auto) 1.63 K/uL (1.2-3.4); Lymphocytes % (auto) 19.5 %; Mean Corpuscular Hemoglobin 30.9 pg (25-34); Mean Corpuscular Hgb Conc 33.5 g/dL (32-36); Mean Platelet Volume 11.4 fL (7.4-10.4); Monocytes # (auto) 0.91 K/uL (0.11-0.59); Monocytes % (auto) 10.9 %; Neutrophils # (auto) 5.77 K/uL (1.4-6.5); Neutrophils % (auto) 68.9 %; Platelet Count 175 K/uL (130-400); Red Blood Count 3.37 M/uL (4.2-5.4); White Blood Count 8.37 K/uL (4.8-10.8)
[2020-10-14] MEDS: PIPERACILLIN/TAZOBACTAM 3.375 GM in DEXTROSE 5% 100 ML IV SCH (07:48)
[2020-10-14] MEDS: oxyCODONE/ACETAMINOPHEN 5mg/325mg TAB PO PRN ×2 (07:53→16:09)
--- NOTE | 2020-10-14 08:20 | Surgery Progress Note ---
Date of Service October 14, 2020 Assessment & Plan (1) Acute appendicitis: Postoperative day 1 status post laparoscopic appendectomy for acute appendicitis with small area of perforation She is doing well Encouraged ambulation Continue IV antibiotics Awaiting culture Can reevaluate this afternoon and if continues to do well consider discharging home on Augmentin and then can adjust antibiotics if cultures demonstrate organisms resistant to that Otherwise may need to keep until tomorrow Encouraged p.o. Admission and Anticipated Discharge Date Admission Date: October 13, 2020 Subjective Postoperative day #1 status post laparoscopic appendectomy for acute appendicitis with small area of perforation Patient feels fairly well today but still having some abdominal discomfort Has an appetite and is hungry Denies nausea and [facility] cc out yesterday and 45 cc out for shift today all serosanguineous Physical Exam Gastrointestinal (Abdomen): Inspection/Auscultation: normal bowel sounds; abdomen not distended Percussion/Palpation: + abdomen tender (Mild) and abdomen soft Results & Data ([facility]) Vital Signs (Past 12 Hours) Vital Signs Temp Pulse Resp BP Pulse Ox 10/14/20 06:52 36.6 C 76 16 93/55 L 99 10/14/20 03:59 36.7 C 68 16 96/58 L 98 10/13/20 23:20 36.7 C 81 16 113/66 98 Laboratory Results 10/14/20 Range/Units 05:08 WBC 8.37 (4.8-10.8) K/uL RBC 3.37 L (4.2-5.4) M/uL Hgb 10.4 L D (12.0-16.0) g/dL Hct 31.0 L (37-47) % MCV 92.0 (80-100) fL MCH 30.9 (25-34) pg MCHC 33.5 (32-36) g/dL RDW Std Deviation 44.0 (36.4-46.3) fL RDW Coeff of Anthony 13.0 (11.5-14.5) % Plt Count 175 (130-400) K/uL MPV 11.4 H (7.4-10.4) fL Immature Gran % (Auto) 0.1 % Neut % (Auto) 68.9 % Lymph % (Auto) 19.5 % Ball[place] % (Auto) 10.9 % Eos % (Auto) 0.5 % Baso % (Auto) 0.1 % Neut # (Auto) 5.77 (1.4-6.5) K/uL Lymph # (Auto) 1.63 (1.2-3.4) K/uL [place] # (Auto) 0.91 H (0.11-0.59) K/uL Eos # (Auto) 0.04 (0-0.5) K/uL Baso # (Auto) 0.01 (0-0.2) K/uL Immature Gran # (Auto) 0.01 (0.00-0.02) K/uL Diagnostic Findings Culture is pending from abdominal fluid (1) Acute appendicitis Acute appendicitis type: with localized peritonitis Appendicitis abscess presence: without abscess Appendicitis gangrene presence: without gangrene Appendicitis perforation presence: without perforation Qualified Code(s): K35.30 - Acute appendicitis with localized peritonitis, without perforation or gangrene
[2020-10-14] MEDS ORDERED: ACETAMINOPHEN 325 MG TAB PO PRN (09:13)
--- NOTE | 2020-10-15 09:24 | Discharge Summary ---
Date of Service October 15, 2020 Admission HPI Per Admitting Provider This is a 19-year-old female who presented to the emergency room with a complaint of right lower quadrant abdominal pain. She awoke with it yesterday morning. At that time it was a dull ache-like sensation diffusely throughout her abdomen. As the day progressed the pain seemed to increase in intensity but she was able to go to sleep last night. When she awoke this morning the pain was much more severe and sharp. It had migrated to the right lower quadrant where it is located now. It does not radiate. It is exacerbated by motion. She has never had pain like this before. She has no fever or chills but she did develop vomiting this morning and vomited again on the way to the hospital. There was no hematemesis. She has no history of peptic ulcer disease. She has no melena or hematochezia. She denies dysuria and hematuria. Principal Diagnosis Acute Appendicitis Discharge Data Allergies Allergy/AdvReac Type Severity Reaction Status Date / Time No Known Allergies Allergy Verified 10/12/20 20:13 Consultations 10/12/20 20:39 ED Decision to Admit Stat Procedures Performed Operation Date: 10/12/20 23:00 Actual Procedures p Laparoscopic Appendectomy(Not Applicable) - Orlando Jean-Baptiste MD Ordered Studies 10/12/20 19:21 CT abd pelvis IV con only Urgent Hospital Course (1) Acute appendicitis: Patient was taken to operating room for laparoscopic appendectomy possible open. Patient was found to have appendicitis with pinhole microperforation. A jose drain was placed given cloudy fluid in the pelvis. Patient tolerated procedure well and was transferred to recovery and then to medical/surgical floor for postoperative care. Diet was advanced to regular diet. Activity as tolerated. IV Zosyn was continued. Jose drain to bulb suction. PO Percocet and IV Morphine prn pain. Postoperative day 1 , afebrile, vitals stable, pain moderate but controlled, culture showed no organisms and no growth but many polys. Patient was evaluated in afternoon on POD # 1 and pain was controlled, tolerated diet and ambulating. Patient was ready for discharge. Patient was discharged home with jose drain removed prior. Discharged home on 7 days of Augmentin pending culture results. Overal stay was uneventful. Total Time Total Time Spent Total Time Spent (In Minutes): 20 Total Time Includes: Examination of the Patient, Discharge Planning and Medication Reconciliation Discharge Plan Discharge Items Patient Disposition: Home - Self-Care Reason For Visit: ABD PAIN, VOMITING Discharge Diagnosis: Acute Appendicitis Activity: Per Instructions section Non-emergency contact: Surgeon Call non-emergency contact if: you have any medication questions, your pain is not controlled, your pain is worsening, your pain is concerning for you, you have a fever, your temperature is above 101, your wound has increased redness, your wound has increased drainage and your wound pain has increased Follow-up/Referrals: PCP,NO [Primary Care Provider] - Diet: Regular Addtl Attending Provider Instructions: Post-Surgical ~Discharge Instructions Activity Recommendations: - lifting limitation: (10 pounds for 2 weeks), - exercise/sex/sports limit: (nonstrenuous for 2 weeks), - driving or machine use limit: (none for 1 week), - Shower/bathe limit: (may shower , no submerging underwater for 2 weeks) Diet: - Resume previous diet SPECIAL CARE INSTRUCTIONS: - May shower. Let water run over area and pat dry. - Drain site will heal on its own. Keep drain site covered with dressing and change daily until healed. - Leave steri strips on for one week and then remove. - Call the surgeon's office with any questions or concerns - - (ex. temperature higher than 101 degrees F, excessive bleeding or pain). MEDICATIONS: - Resume previous medications unless instructed otherwise by your surgeon. - Make take extra strength Tylenol and Ibuprofen as needed for mild pain - 650 mg Tylenol every 6 hours as needed - Ibuprofen 600 mg every 6 hours as needed (take with food) - Percocet 1 every 4 hours, as needed for moderate to severe pain - Take course of antibiotics as prescribed, take entire course unless instructed otherwise. FOLLOW UP VISIT: - If not already scheduled, please call the office to schedule a two week follow-up appointment. Office number Pending Studies at Discharge: Yes Stand-Alone Forms: [employer], Work/School Release (Inpt), Smoking Cessation Medications and DC Order Prescriptions: New oxycodone-acetaminophen [Percocet] 5-325 mg tablet 1 tab PO Q6H PRN (Reason: pain) Qty: 5 RF: 0 amoxicillin-pot clavulanate 875-125 mg tablet 1 tab PO BID Qty: 14 RF: 0 Continued bismuth subsalicylate [Pepto-Bismol] 262 mg Tablet,Chewable 2 tab PO QID PRN (Reason: Indigestion) RF: 0 Discharge Orders: Discharge Order (Routine); Ordered 10/14/20 Ordered By: Preethi Reid Admission Data Admit Date/Time: 10/13/20 01:33 Attending Provider: Orlando Jean-Baptiste Admit Provider: Orlando Jean-Baptiste Primary Care Provider: PCP,NO Other Providers: Orlando Jean-Baptiste Other Interventions: Discharge Summary Assessment (RN) Last Done: 10/14/20 15:47
== END 2020-10-14 16:42 | disposition home or self-care (01) ==
LOC: ED 19:04 → 3E 22:31 → OR 22:31